=== PATIENT | female | born 1970 | race Caucasian/White ===

== ENCOUNTER 2018-09-07 19:48 | Emergency (ER) | payer SELFPAY ==
[~2018-09-07] VITALS: Ht 154.9 cm; Wt 58.1 kg
[2018-09-07] MEDS ORDERED: diphenhydrAMINE 50 MG/ML VIAL IVP ONE (20:00)
[2018-09-07] MEDS ORDERED: ONDANSETRON PF 4 MG/2 ML VIAL. IV ONE (20:15)
[2018-09-07] MEDS ORDERED: methylPREDNISolone SOD SUCC PF 125 MG/2 ML VIAL. IV ONE (20:15)
[2018-09-07] MEDS ORDERED: FAMOTIDINE 20 MG/2 ML VIAL IVP ONE (20:15)
--- NOTE | 2018-09-07 20:26 | ED.ADGEN ---
Adult General Chief Complaint Chief Complaint Allergic reaction HPI HPI Patient is a 48-year-old female presents with diffuse urticaria and itching after using bug spray 1 hour prior to ED arrival. Symptoms began ears and gradually spread to extremities and torso and face. Patient reports this swelling sensation on the outer margin of her tongue. Denies posterior oral pharyngeal swelling, neck swelling, chest tightness or shortness of breath. No wheezing. patient did take 75 mg of Benadryl prior to ED arrival. History of multiple allergies to household products and bee stings. Patient has never been hospitalized for treatment of her allergies. Review of Systems Review of Systems ROS as per HPI All other systems were reviewed and found to be within normal limits, except as documented in this note. Current Medications Current Medications Current Medications Medications (Trade) Dose Ordered Sig/Flako Start Time Stop Time Status Last Admin Dose Admin Diphenhydramine HCl (Benadryl) 50 mg 1X ONCE 09/07/18 20:00 09/07/18 20:05 DC Famotidine (Pepcid Vial) 40 mg 1X ONCE 09/07/18 20:15 09/07/18 20:16 DC 09/07/18 20:12 40 MG Methylprednisolone Sodium Succinate (SOLU-Medrol 125MG VIAL) 125 mg 1X ONCE 09/07/18 20:15 09/07/18 20:16 DC 09/07/18 20:12 125 MG Ondansetron HCl (Zofran) 4 mg 1X ONCE 09/07/18 20:15 09/07/18 20:16 DC 09/07/18 20:15 4 MG Allergies Allergies Allergies Coded Allergies Type Severity Reaction Last Updated Verified codeine Allergy Unknown 09/07/18 Yes Physical Exam Physical Exam Constitutional: Well developed, well nourished, no acute distress, non-toxic a ppearance. [] HENT: Normocephalic, atraumatic, bilateral external ears normal, oropharynx moist, no oral exudates, nose normal. [] Eyes: PERRLA, EOMI, conjunctiva normal, no discharge. [] Neck: Normal range of motion, no tenderness, supple, no stridor. [] Cardiovascular:Heart rate regular rhythm, no murmur [] Lungs & Thorax: Bilateral breath sounds clear to auscultation [] Abdomen: Bowel sounds normal, soft, no tenderness. [] Skin: Diffuse urticaria involving extremities, torso, head. [] Neurologic: Alert and oriented X 3, normal motor function, normal sensory function, no focal deficits noted. [] Psychologic: Affect normal, judgement normal, mood normal. [] Current Patient Data Vital Signs Vital Signs Date Time Temp Pulse Resp B/P (MAP) Pulse Ox O2 Delivery O2 Flow Rate FiO2 09/07/18 19:48 97.7 111 28 97 Room Air EKG EKG [] Radiology/Procedures Radiology/Procedures [] Course & Med Decision Making Course & Med Decision Making Pertinent Labs and Imaging studies reviewed. (See chart for details) [tongue swelling and, rash fully resolved with treatment. Recommend continued supportive care with PCP follow-up. Return precautions reviewed] Final Impression Final Impression [1. Allergic reaction] Dragon Disclaimer Dragon Disclaimer This electronic medical record was generated, in whole or in part, using a voice recognition dictation system. MUNIR RIOJAS DO Sep 07, 2018 20:26
[2018-09-07] MEDS ORDERED: FAMO-63 PO (21:22)
[2018-09-07] MEDS ORDERED: PRED50TA PO (21:22)
[2018-09-07 21:58] VITALS: BP 112/78
== END 2018-09-07 21:56 | disposition home or self-care (01) ==
LOC: ER 19:48
DX: L50.0 Allergic urticaria (principal); Z88.5 Allergy status to narcotic agent
CPT/HCPCS: 96374; 96375; 99284; J2405; J2930; J3490